=== PATIENT | male | born 1965 | race Caucasian/White ===

== ENCOUNTER 2021-07-31 19:52 | Inpatient (IN) | payer SELFPAY ==
[2021-08-01 00:06] VITALS: BMI 29.4
[2021-08-01] MEDS ORDERED: Acetaminophen 325 MG TAB PO PRN (01:07)
[2021-08-01] MEDS ORDERED: Ondansetron PF 4 MG/2 ML Vial IVP PRN (01:07)
[2021-08-01] MEDS ORDERED: Sodium Chloride 0.9% (PF) 10 ML VIAL FS PRN (01:15)
[2021-08-01] MEDS: Sodium Chloride 0.9% 1,000 ML IV SCH ×2 (01:40→20:12)
[2021-08-01] MEDS: cefTRIAXone\\ROCEPHIN 1 GM in Sodium Chloride 0.9% 100 ML IVPB SCH (01:40)
[2021-08-01] MEDS ORDERED: hydrALAZINE 20 MG/ML VIAL SLOW IVP PRN (02:12)
[2021-08-01 02:14] LABS: #Basophils 0.1 thou/uL (0.0-0.2); #Eosinphils 0.1 thou/uL (0.0-0.7); #Lymphocytes 2.2 thou/uL (1.20-3.40); #Monocytes 0.8 thou/uL (0.11-0.59); #Neutrophils 4.8 thou/uL (1.40-6.50); %Basophils 0.8 % (0.0-1.0); %Eosinophils 1.2 % (0.0-10.0); %Monocytes 9.9 % (0.0-10.0); %Neutrophils 60.2 % (42.0-75.0); Hemoglobin 11.2 g/dL (14.0-18.0); Mean Corpuscular HGB CONC 34.8 g/dL (32.0-36.0); Mean Corpuscular Hemoglobin 31.4 pg (27.0-31.0); Mean Corpuscular Volume 90.4 fL (78.0-98.0); Mean Platelet Volume 8.5 fL (7.4-10.4); Platelet Count 219 thou/uL (130-400); RBC Distribution Width 12.1 % (11.5-14.5); Red Blood Cell (RBC) Count 3.55 mill/uL (4.70-6.10); White Blood Cell (WBC) Count 7.9 thou/uL (4.8-10.8)
[2021-08-01 02:17] LABS: INR-International Normal Ratio 1.2; PTT 26.6 sec (22.9-36.1); Prothrombin Time 15.6 sec (12.0-14.7)
[2021-08-01 02:32] LABS: Troponin I Less than 0.010 ng/mL (< 0.028)
[2021-08-01 02:55] LABS: Anion Gap 11 mmol/L (10-20); BUN (Urea Nitrogen) 43 mg/dL (8.4-25.7); Calc. Creatinine Clearance 76 mL/min (70-130); Calcium 8.2 mg/dL (7.8-10.44); Carbon Dioxide 20 mmol/L (22-29); Chloride 111 mmol/L (98-107); Glucose 87 mg/dL (70-105); Potassium 3.8 mmol/L (3.5-5.1); Sodium 138 mmol/L (136-145)
[2021-08-01] MEDS: Pantoprazole 40 MG VIAL IVP SCH ×2 (05:55→18:33)
[2021-08-01 11:29] LABS: Hemoglobin 10.7 g/dL (14.0-18.0)
[2021-08-01 18:19] LABS: Hemoglobin 11.2 g/dL (14.0-18.0)
[2021-08-01] MEDS: Icosapent Ethyl 1 GM CAPSULE PO SCH (18:31)
[2021-08-01] MEDS: Allopurinol 100 MG TAB PO SCH (20:12)
[2021-08-01] MEDS ORDERED: Melatonin 3 MG TAB PO PRN (23:27)
[2021-08-02] MEDS: cefTRIAXone\\ROCEPHIN 1 GM in Sodium Chloride 0.9% 100 ML IVPB SCH (01:17)
[2021-08-02] MEDS: Pantoprazole 40 MG VIAL IVP SCH (06:08)
[2021-08-02 06:13] LABS: #Eosinphils 0.2 thou/uL (0.0-0.7); #Lymphocytes 1.8 thou/uL (1.20-3.40); #Monocytes 0.5 thou/uL (0.11-0.59); #Neutrophils 2.7 thou/uL (1.40-6.50); %Basophils 0.5 % (0.0-1.0); %Eosinophils 3.7 % (0.0-10.0); %Monocytes 10.2 % (0.0-10.0); %Neutrophils 51.5 % (42.0-75.0); Hemoglobin 10.6 g/dL (14.0-18.0); Mean Corpuscular HGB CONC 34.1 g/dL (32.0-36.0); Mean Corpuscular Volume 90.9 fL (78.0-98.0); Mean Platelet Volume 8.4 fL (7.4-10.4); Platelet Count 199 thou/uL (130-400); Red Blood Cell (RBC) Count 3.43 mill/uL (4.70-6.10); White Blood Cell (WBC) Count 5.2 thou/uL (4.8-10.8)
[2021-08-02 06:41] LABS: Anion Gap 7 mmol/L (10-20); BUN (Urea Nitrogen) 22 mg/dL (8.4-25.7); Calc. Creatinine Clearance 91 mL/min (70-130); Calcium 8.5 mg/dL (7.8-10.44); Carbon Dioxide 26 mmol/L (22-29); Chloride 110 mmol/L (98-107); Glucose 88 mg/dL (70-105); Potassium 4.4 mmol/L (3.5-5.1); Sodium 139 mmol/L (136-145)
[2021-08-02 08:10] VITALS: TEMP 97.9
[2021-08-02] MEDS ORDERED: Lidocaine 1% PF 5 ML VIAL ONE (10:28)
[2021-08-02] MEDS ORDERED: PROPOFOL 200 MG/20 ML VIAL ONE (10:28)
[2021-08-02] MEDS ORDERED: Promethazine HCl 25 MG/ML VIAL IVPB PRN (10:35)
[2021-08-02] MEDS ORDERED: Ondansetron HCl/PF 4 MG/2 ML Vial IVP PRN (10:35)
[2021-08-02] MEDS ORDERED: Promethazine HCl 25 MG/ML VIAL IM PRN (10:35)
[2021-08-02] MEDS: Icosapent Ethyl 1 GM CAPSULE PO SCH (13:34)
[2021-08-02] MEDS: Allopurinol 100 MG TAB PO SCH (13:35)
[2021-08-02 16:00] VITALS: BP 130/73
== END 2021-08-02 16:02 | disposition home or self-care (01) | DRG 378 ==
LOC: 2NO 19:52 → OBSVTOIN 08-01 12:17 → SJJU 08-01 14:05
PROVIDERS: ADMIT Internal Medicine; ATTEND Internal Medicine
PROC: 0DB78ZX Excision of Stomach, Pylorus, Via Natural or Artificial Opening Endoscopic, Diagnostic (ICD-10-PCS; principal; 2021-08-02)
DX: K29.01 Acute gastritis with bleeding (principal); D62 Acute posthemorrhagic anemia; N17.9 Acute kidney failure, unspecified; K22.10 Ulcer of esophagus without bleeding; Z20.822 Contact with and (suspected) exposure to COVID-19; I25.10 Atherosclerotic heart disease of native coronary artery without angina pectoris; N20.0 Calculus of kidney; I10 Essential (primary) hypertension; N13.9 Obstructive and reflux uropathy, unspecified; I48.0 Paroxysmal atrial fibrillation; Z95.5 Presence of coronary angioplasty implant and graft; Z79.899 Other long term (current) drug therapy
CPT/HCPCS: 36415; 80048; 84484; 85025; 85610; 85730; 86850; 86900; 86901; 87086; 88305; 88312; 96374; 96375; C9113; G0378; J0696; J2704; J3490; J7050